=== PATIENT | male | born 1975 | race Caucasian/White ===

== ENCOUNTER → 2017-06-02 09:44 | Outpatient (CLI) | payer BC | END | disposition home or self-care (01) | LOC: D.MRI 05-28 11:00 | DX: M54.2 Cervicalgia (principal) ==

== ENCOUNTER 2020-08-01 10:00 | Outpatient (CLI) | payer OTHER | END 2020-08-01 11:10 | disposition home or self-care (01) | LOC: D.OPS 10:00 | PROVIDERS: ATTEND Surgery | DX: K21.9 Gastro-esophageal reflux disease without esophagitis (principal) ==